=== PATIENT | female | born 1955 | race Caucasian/White ===

== ENCOUNTER 2018-10-25 09:45 | Day surgery (SDC) | payer OTHER ==
[2018-10-20 13:28] VITALS: BMI 21.6
[2018-10-25 11:37] VITALS: PULSE 86; TEMP 97.4
[2018-10-25 11:53] VITALS: BP 101/58
== END 2018-10-25 12:00 | disposition home or self-care (01) ==
LOC: FASU-ENDO 09:45
PROVIDERS: ATTEND Internal Medicine Gastroenterology
PROC: 0DJD8ZZ Inspection of Lower Intestinal Tract, Via Natural or Artificial Opening Endoscopic (ICD-10-PCS; principal; 2018-10-25 10:51)
DX: Z12.11 Encounter for screening for malignant neoplasm of colon (principal); K57.30 Diverticulosis of large intestine without perforation or abscess without bleeding; K64.0 First degree hemorrhoids

== ENCOUNTER 2021-01-13 08:38 | Day surgery (SDC) | payer OTHER ==
[2021-01-13 10:44] VITALS: BMI 22.3
[2021-01-13 12:53] VITALS: BP 98/62; PULSE 83; TEMP 98.1
== END 2021-01-13 12:35 | disposition home or self-care (01) ==
LOC: FASU-ENDO 08:38
PROVIDERS: ATTEND Internal Medicine Gastroenterology
PROC: 0DJD8ZZ Inspection of Lower Intestinal Tract, Via Natural or Artificial Opening Endoscopic (ICD-10-PCS; principal; 2021-01-13 11:34)
DX: Z12.11 Encounter for screening for malignant neoplasm of colon (principal); K64.0 First degree hemorrhoids; K57.30 Diverticulosis of large intestine without perforation or abscess without bleeding